=== PATIENT | male | born 1945 | race Caucasian/White ===

== ENCOUNTER 2017-08-22 11:50 | Emergency (ER) | payer MEDICARE, OTHER ==
[2017-08-22 12:06] VITALS: BP 141/79
[2017-08-22] MEDS ORDERED: HYDROMORPHONE HCL INJ/PF 2 MG/ML AMPULE IV ONE (12:15)
[2017-08-22] MEDS ORDERED: NORMAL SALINE 1000 ML 1,000 ML IV ONE (12:15)
--- NOTE | 2017-08-22 12:16 | ER Document Report ---
ED Medical Screen (RME) - General Chief Complaint: Flank Pain Stated Complaint: FLANK PAIN Time Seen by Provider: 08/22/17 12:14 Notes: Patient presents with left flank pain since yesterday. No urinary symptoms. He states he has had 2 previous kidney stones. He states he also has a known abdominal aortic aneurysm that is less than 5 cm. He has not been lightheaded or dizzy. TRAVEL OUTSIDE OF THE [place] IN LAST 30 DAYS: No - Related Data Allergies/Adverse Reactions: No Known Allergies Allergy (Unverified 08/22/17 11:52) Physical Exam - Vital signs Vitals: Temp Pulse Resp BP Pulse Ox 97.5 F 65 20 141/79 H 94 08/22/17 12:03 08/22/17 12:03 08/22/17 12:03 08/22/17 12:03 08/22/17 12:03 Course - Vital Signs Vital signs: Temp Pulse Resp BP Pulse Ox 97.5 F 65 20 141/79 H 94 08/22/17 12:03 08/22/17 12:03 08/22/17 12:03 08/22/17 12:03 08/22/17 12:03
[2017-08-22 13:01] LABS: ABSOLUTE BASOPHILS # (AUTO) 0.1 10^3/uL (0.0-0.2); ABSOLUTE EOSINOPHILS # (AUTO) 0.2 10^3/uL (0.0-0.6); ABSOLUTE LYMPHOCYTES (AUTO) 1.5 10^3/uL (0.5-4.7); ABSOLUTE MONOCYTES (AUTO) 0.8 10^3/uL (0.1-1.4); ABSOLUTE NEUT (AUTO) 5.5 10^3/uL (1.7-8.2); EOSINOPHILS % (AUTO) 2.7 % (0-6); HEMATOCRIT 44.4 % (37.9-51.0); HEMOGLOBIN 15.2 g/dL (13.5-17.0); LYMPHOCYTES % (AUTO) 18.5 % (13-45); MEAN CORPUSCULAR HEMOGLOBIN 32.2 pg (27.0-33.4); MEAN CORPUSCULAR HGB CONC 34.2 g/dL (32.0-36.0); MEAN CORPUSCULAR VOLUME 94 fl (80-97); MONOCYTES % (AUTO) 9.8 % (3-13); PLATELET COUNT 232 10^3/uL (150-450); RED BLOOD COUNT 4.72 10^6/uL (4.35-5.55); RED CELL DISTRIBUTION WIDTH 14.9 % (11.5-14.0); TOTAL CELLS COUNTED % (AUTO) 100 %; WHITE BLOOD COUNT 8.1 10^3/uL (4.0-10.5)
--- NOTE | 2017-08-22 13:17 | ER Document Report ---
ED General - General Chief Complaint: Flank Pain Stated Complaint: FLANK PAIN Time Seen by Provider: 08/22/17 12:14 TRAVEL OUTSIDE OF THE [place] IN LAST 30 DAYS: No - HPI Patient complains to provider of: Left flank pain Notes: Elderly man with history of kidney stones presents with 10/10 left flank pain with radiation to his left groin. He also endorses hematuria and mild nausea. States this feels 1 of his previous kidney stones. Denies fever chills or dysuria. Denies any abdominal pain chest pain or cough. - Related Data Allergies/Adverse Reactions: No Known Allergies Allergy (Unverified 08/22/17 11:52) Past Medical History - Social History Smoking Status: Current Some Day Smoker Chew tobacco use (# tins/day): No Frequency of alcohol use: None Drug Abuse: None Family History: Reviewed & Not Pertinent Patient has suicidal ideation: No Patient has homicidal ideation: No - Past Medical History Cardiac Medical History: Reports: Hx Hypercholesterolemia, Hx Hypertension Pulmonary Medical History: Reports: Hx COPD Renal/ Medical History: Denies: Hx Peritoneal Dialysis Past Surgical History: Reports: Hx Cardiac Surgery Review of Systems - Review of Systems Notes: REVIEW OF SYSTEMS: CONSTITUTIONAL: -fevers, -chills EENT: -eye pain, -difficulty swallowing, -nasal congestion CARDIOVASCULAR: -chest pain, -syncope. RESPIRATORY: -cough, -SOB GASTROINTESTINAL: -abdominal pain, -nausea, -vomiting, -diarrhea GENITOURINARY: -dysuria, -hematuria MUSCULOSKELETAL: Positive left flank pain SKIN: -rash or skin lesions. HEMATOLOGIC: -easy bruising or bleeding. LYMPHATIC: -swollen, enlarged glands. NEUROLOGICAL: -altered mental status or loss of consciousness, -headache, - neurologic symptoms PSYCHIATRIC: -anxiety, -depression. ALL OTHER SYSTEMS REVIEWED AND NEGATIVE. Physical Exam - Vital signs Vitals: Temp Pulse Resp BP Pulse Ox 97.5 F 65 20 141/79 H 94 08/22/17 12:03 08/22/17 12:03 08/22/17 12:03 08/22/17 12:03 08/22/17 12:03 - Notes Notes: PHYSICAL EXAMINATION: GENERAL: Well-appearing, well-nourished and in no acute distress. HEAD: Atraumatic, normocephalic. EYES: Pupils equal round and reactive to light, extraocular movements intact, sclera anicteric, conjunctiva are normal. ENT: nares patent, oropharynx clear without exudates. Moist mucous membranes. NECK: Normal range of motion, supple without lymphadenopathy LUNGS: Breath sounds clear to auscultation bilaterally and equal. No wheezes rales or rhonchi. HEART: Regular rate and rhythm without murmurs ABDOMEN: Soft, nontender, normoactive bowel sounds. No guarding, no rebound. No masses appreciated. EXTREMITIES: Normal range of motion, no pitting or edema. No cyanosis. NEUROLOGICAL: Cranial nerves grossly intact. Normal speech, normal gait. Normal sensory and motor exams. PSYCH: Normal mood, normal affect. SKIN: Warm, Dry, normal turgor, no rashes or lesions noted. Back: Positive CVA percussion Course - Re-evaluation Re-evalutation: 08/22/17 14:54 Extensive lab workup relatively unremarkable, patient has preserved kidney function. Advanced imaging study shows no obstruction just constipation. Patient found a urinary tract infection and nitrate positive. Patient will be initiated on cefdinir, to ensure intraparenchymal distribution of antibiotics as opposed to Macrobid. Patient be discharged home follow-up with his family doctor - Vital Signs Vital signs: Temp Pulse Resp BP Pulse Ox 97.5 F 65 20 141/79 H 94 08/22/17 12:03 08/22/17 12:03 08/22/17 12:03 08/22/17 12:03 08/22/17 12:03 - Laboratory Result Diagrams: 08/22/17 12:52 08/22/17 12:52 Laboratory results interpreted by me: 08/22/17 08/22/17 08/22/17 12:52 12:52 14:20 RDW 14.9 H AST 15 L ALT 17 L Urine Protein 30 H Urine Nitrite POSITIVE H Urine Urobilinogen 4.0 H Discharge - Discharge Clinical Impression: UTI (urinary tract infection) Qualifiers: Urinary tract infection type: acute pyelonephritis Qualified Code(s): N10 - Acute pyelonephritis Condition: Good Disposition: HOME, SELF-CARE Instructions: Urinary Tract Infection, Child ([facility]) Prescriptions: Cefdinir 300 mg PO BID #20 capsule Nitrofurantoin/Nitrofuran Mac [Macrobid 100 mg Capsule] 1 tab PO BID #20 capsule Oxycodone HCl [Oxycodone HCl 10 MG Tablet] 1 - 2 tab PO Q6H PRN #15 tablet PRN Reason: PAIN Referrals: HÉCTOR JENKINS MD [Primary Care Provider] - Follow up as needed
[2017-08-22 13:23] LABS: ALANINE AMINOTRANSFERASE 17 U/L (21-72); ALBUMIN 4.5 g/dL (3.5-5.0); ALKALINE PHOSPHATASE 107 U/L (38-126); ANION GAP 13 (5-19); ASPARTATE AMINO TRANSFERASE 15 U/L (17-59); BILIRUBIN,DIRECT 0.2 mg/dL (0.0-0.4); BILIRUBIN,TOTAL 0.6 mg/dL (0.2-1.3); BLOOD UREA NITROGEN 15 mg/dL (7-20); CALCIUM 10.1 mg/dL (8.4-10.2); CARBON DIOXIDE 25 mmol/L (22-30); CHLORIDE 102 mmol/L (98-107); GLUCOSE 98 mg/dL (75-110); POTASSIUM 4.9 mmol/L (3.6-5.0); SODIUM 140.3 mmol/L (137-145); TOTAL PROTEIN 7.5 g/dL (6.3-8.2)
--- NOTE | 2017-08-22 13:42 | RADIOLOGY REPORT (SQ) ---
EXAM DESCRIPTION: CT ABD/PELVIS NO ORAL OR IV COMPLETED DATE/TIME: 08/22/2017 1:16 pm REASON FOR STUDY: left flank pain/hx stones AAA COMPARISON: None. TECHNIQUE: CT scan of the abdomen and pelvis performed without intravenous or oral contrast. Images reviewed with lung, soft tissue, and bone windows. Reconstructed coronal and sagittal MPR images revi ewed. All images stored on PACS. All CT scanners at this facility use dose modulation, iterative reconstruction, and/or weight based d osing when appropriate to reduce radiation dose to as low as reasonably achievable (ALARA). [facility]: Dose Right [facility]: CareDose [facility]: Dose Right [facility]: Teradose 4D [facility]: Smart MPV RADIATION DOSE: CT Rad equipment meets quality standard of care and radiation dose reduction techniq ues were employed. CTDIvol: 4.9 mGy. DLP: 274 mGy-cm.mGy. LIMITATIONS: None. FINDINGS: LOWER CHEST: Mild COPD and mild scarring. No acute abnormalities. NON-CONTRASTED LIVER, SPLEEN, ADRENALS: Evaluation limited by lack of IV contrast. No identified sign ificant masses. PANCREAS: No masses. No peripancreatic inflammatory changes. GALLBLADDER: No identified stones by CT criteria. No inflammatory changes to suggest cholecystitis. RIGHT KIDNEY AND URETER: Small. No suspicious masses. Assessment limited by lack of IV contrast. N o significant calcifications. No hydronephrosis or hydroureter. LEFT KIDNEY AND URETER: No suspicious masses. Assessment limited by lack of IV contrast. Calcificat ion in the renal pelvis which appears vascular. No evidence of urinary tract stones. No hydronephr osis or hydroureter. AORTA AND RETROPERITONEUM: 4.3 cm infrarenal abdominal aortic aneurysm. 4.7 cm right common iliac an eurysm. No evidence of rupture. BOWEL AND PERITONEAL CAVITY: Large amount of fecal material in the transverse colon. Diverticulosis primarily involving the sigmoid colon. No diverticulitis. APPENDIX: Normal. PELVIS, BLADDER, AND ABDOMINAL WALL:Mild prostatic enlargement. Phleboliths and arterial calcificati ons in the pelvis. BONES: No acute findings. Old moderate compression fracture at L4 with old minimal compression fract ure at T12. OTHER: No other significant finding. IMPRESSION: 1. No evidence of urinary tract stone or obstruction. 2. Small right kidney. 3. 4.3 cm infrarenal abdominal aortic aneurysm with 4.7 cm right common iliac aneurysm. 4. Large amount of fecal material in transverse colon. 5. Sigmoid diverticulosis. No evidence of diverticulitis. COMMENT: Quality ID # [id number]: Final reports with documentation of one or more dose reduction techniques (e.g., Automated exposure control, adjustment of the mA and/or kV according to patient size, use of iterative reconstruction technique) TECHNICAL DOCUMENTATION: JOB ID: [id number] [employer]- All Rights Reserved Reading location - IP/workstation name: [email or web address]
[2017-08-22 14:47] LABS: APPEARANCE,URINE CLEAR; BILIRUBIN,URINE NEGATIVE (NEGATIVE); COLOR,URINE AMBER; GLUCOSE, URINE NEGATIVE (NEGATIVE); KETONES,URINE NEGATIVE (NEGATIVE); LEUKOCYTE ESTERASE,URINE NEGATIVE (NEGATIVE); NITRITE,URINE POSITIVE (NEGATIVE); PROTEIN,URINE 30 mg/dL (NEGATIVE); URINE SPECIFIC GRAVITY 1.016
== END 2017-08-22 15:46 | disposition home or self-care (01) ==
LOC: ER 11:50
DX: N10 Acute pyelonephritis (principal); K59.00 Constipation, unspecified; R10.30 Lower abdominal pain, unspecified; R31.9 Hematuria, unspecified; R11.0 Nausea; F17.200 Nicotine dependence, unspecified, uncomplicated
CPT/HCPCS: 99284; 96361; 96374; 36415; 87086; 85025; 80053; 81001; 74176; J1170; J7030

== ENCOUNTER 2017-08-27 14:40 | Emergency (ER) | payer MEDICARE, OTHER ==
[2017-08-27] MEDS ORDERED: NORMAL SALINE 1000 ML 1,000 ML IV ONE (16:43)
--- NOTE | 2017-08-27 16:44 | ER Document Report ---
ED Medical Screen (RME) - General Chief Complaint: Flank Pain Stated Complaint: FLANK PAIN Time Seen by Provider: 08/27/17 16:41 Notes: Patient seen here last week and diagnosed with urinary tract infection. He was discharged home on Ceftin ear and oxycodone. He states he is out of pain medication in his left flank pain is now severe. He also has nausea. TRAVEL OUTSIDE OF THE [place] IN LAST 30 DAYS: No - Related Data Allergies/Adverse Reactions: codeine Adverse Reaction (Verified 08/27/17 14:43) Past Medical History - Social History Chew tobacco use (# tins/day): No Frequency of alcohol use: None Drug Abuse: None - Past Medical History Cardiac Medical History: Reports: Hx Hypercholesterolemia, Hx Hypertension Pulmonary Medical History: Reports: Hx COPD Renal/ Medical History: Denies: Hx Peritoneal Dialysis Past Surgical History: Reports: Hx Cardiac Surgery Physical Exam - Vital signs Vitals: Temp Pulse Resp BP Pulse Ox 97.7 F 84 17 117/88 H 91 L 08/27/17 15:04 08/27/17 15:04 08/27/17 15:04 08/27/17 15:04 08/27/17 15:04 Course - Vital Signs Vital signs: Temp Pulse Resp BP Pulse Ox 97.7 F 84 17 117/88 H 91 L 08/27/17 15:04 08/27/17 15:04 08/27/17 15:04 08/27/17 15:04 08/27/17 15:04
[2017-08-27] MEDS ORDERED: KETOROLAC TROMETHAMINE INJ/PF 30 MG/1 ML SDV IV ONE (16:59)
[2017-08-27 17:23] LABS: ABSOLUTE BASOPHILS # (AUTO) 0.1 10^3/uL (0.0-0.2); ABSOLUTE LYMPHOCYTES (AUTO) 1.1 10^3/uL (0.5-4.7); ABSOLUTE MONOCYTES (AUTO) 0.7 10^3/uL (0.1-1.4); ABSOLUTE NEUT (AUTO) 7.5 10^3/uL (1.7-8.2); BASOPHILS % (AUTO) 1.2 % (0-2); EOSINOPHILS % (AUTO) 0.5 % (0-6); HEMOGLOBIN 14.8 g/dL (13.5-17.0); LYMPHOCYTES % (AUTO) 11.4 % (13-45); MEAN CORPUSCULAR HEMOGLOBIN 31.8 pg (27.0-33.4); MEAN CORPUSCULAR HGB CONC 33.6 g/dL (32.0-36.0); MEAN CORPUSCULAR VOLUME 95 fl (80-97); MONOCYTES % (AUTO) 7.9 % (3-13); PLATELET COUNT 274 10^3/uL (150-450); RED BLOOD COUNT 4.65 10^6/uL (4.35-5.55); RED CELL DISTRIBUTION WIDTH 13.8 % (11.5-14.0); TOTAL CELLS COUNTED % (AUTO) 100 %; WHITE BLOOD COUNT 9.5 10^3/uL (4.0-10.5)
[2017-08-27 17:43] LABS: ALANINE AMINOTRANSFERASE 25 U/L (21-72); ALBUMIN 4.3 g/dL (3.5-5.0); ALKALINE PHOSPHATASE 105 U/L (38-126); ANION GAP 12 (5-19); ASPARTATE AMINO TRANSFERASE 18 U/L (17-59); BILIRUBIN,DIRECT 0.4 mg/dL (0.0-0.4); BILIRUBIN,TOTAL 0.4 mg/dL (0.2-1.3); BLOOD UREA NITROGEN 22 mg/dL (7-20); CALCIUM 9.7 mg/dL (8.4-10.2); CARBON DIOXIDE 26 mmol/L (22-30); CHLORIDE 99 mmol/L (98-107); GLUCOSE 105 mg/dL (75-110); POTASSIUM 4.7 mmol/L (3.6-5.0); SODIUM 137.1 mmol/L (137-145); TOTAL PROTEIN 7.7 g/dL (6.3-8.2)
[2017-08-27 18:52] LABS: APPEARANCE,URINE SLIGHTLY-CLOUDY; BILIRUBIN,URINE NEGATIVE (NEGATIVE); COLOR,URINE YELLOW; GLUCOSE, URINE NEGATIVE (NEGATIVE); KETONES,URINE 20 mg/dL (NEGATIVE); LEUKOCYTE ESTERASE,URINE NEGATIVE (NEGATIVE); NITRITE,URINE NEGATIVE (NEGATIVE); PROTEIN,URINE 30 mg/dL (NEGATIVE); UROBILINOGEN,URINE NEGATIVE mg/dL (<2.0)
--- NOTE | 2017-08-27 19:20 | ER Document Report ---
ED General - General Mode of Arrival: Ambulatory Information source: Patient TRAVEL OUTSIDE OF THE [place] IN LAST 30 DAYS: No <ELINA VELASQUEZ - Last Filed: 08/27/17 19:49> <DELICIA VILCHIS - Last Filed: 08/27/17 22:18> - General Chief Complaint: Flank Pain Stated Complaint: FLANK PAIN Time Seen by Provider: 08/27/17 16:41 Notes: Patient is a 72 year old male presenting to the emergency department complaining of right flank pain and nausea worsening today. Patient states that he was seen in the emergency department 5 days ago for the same symptoms and was diagnosed with a kidney infection and prescribed antibiotics. Patient states that his pain as worsened since being diagnosed. Patient denies any fevers or vomiting. (ELINA VELASQUEZ) - Related Data Allergies/Adverse Reactions: codeine Adverse Reaction (Verified 08/27/17 14:43) Past Medical History - General Information source: Patient - Social History Smoking Status: Current Every Day Smoker Chew tobacco use (# tins/day): No Frequency of alcohol use: None Drug Abuse: None Family History: Reviewed & Not Pertinent Patient has suicidal ideation: No Patient has homicidal ideation: No - Past Medical History Cardiac Medical History: Reports: Hx Hypercholesterolemia, Hx Hypertension Pulmonary Medical History: Reports: Hx COPD Past Surgical History: Reports: Hx Cardiac Surgery - bypass <ELINA VELASQUEZ - Last Filed: 08/27/17 19:49> Review of Systems - Review of Systems Constitutional: No symptoms reported EENT: No symptoms reported Cardiovascular: No symptoms reported Respiratory: No symptoms reported Gastrointestinal: See HPI, Nausea Genitourinary: See HPI Male Genitourinary: No symptoms reported Musculoskeletal: No symptoms reported Skin: No symptoms reported Hematologic/Lymphatic: No symptoms reported Neurological/Psychological: No symptoms reported -: Yes All other systems reviewed and negative <ELINA VELASQUEZ - Last Filed: 08/27/17 19:49> Physical Exam <ELINA VELASQUEZ - Last Filed: 08/27/17 19:49> <DELICIA VILCHIS - Last Filed: 08/27/17 22:18> - Vital signs Vitals: Temp Pulse Resp BP Pulse Ox 97.7 F 84 17 117/88 H 91 L 08/27/17 15:04 08/27/17 15:04 08/27/17 15:04 08/27/17 15:04 08/27/17 15:04 - Notes Notes: GENERAL: Alert, interacts well. No acute distress. HEAD: Normocephalic, atraumatic. EYES: Pupils equal, round, and reactive to light. Extraocular movements intact. ENT: Oral mucosa moist, tongue midline. NECK: Full range of motion. Supple. Trachea midline. LUNGS: Clear to auscultation bilaterally, no wheezes, rales, or rhonchi. No respiratory distress. HEART: Regular rate and rhythm. No murmurs, gallops, or rubs. ABDOMEN: Soft, non-tender. Non-distended. Bowel sounds present in all 4 quadrants. EXTREMITIES: Moves all 4 extremities spontaneously. NEUROLOGICAL: Alert and oriented x3. Normal speech. PSYCH: Normal affect, normal mood. SKIN: Warm, dry, normal turgor. No rashes or lesions noted. BACK: No CVA tenderness to percussion. (ELINA VELASQUEZ) Course - Laboratory Result Diagrams: 08/27/17 17:06 08/27/17 17:06 <ELINA VELASQUEZ - Last Filed: 08/27/17 19:49> - Laboratory Result Diagrams: 08/27/17 17:06 08/27/17 17:06 - Diagnostic Test Radiology reviewed: Reports reviewed <DELICIA VILCHIS - Last Filed: 08/27/17 22:18> - Re-evaluation Re-evalutation: 08/27/17 19:46 Patient states he is currently feeling better. (ELINA VELASQUEZ) Patient is a 72-year-old male who comes in complaining of right-sided back pain. He does not have CVA tenderness. CT scan was done 5 days ago with no evidence for ureteral stone. Patient has a known aortic aneurysm. Patient did not know that he had an L4 fracture. Urine today looks well and the patient has no evidence for UTI. Urine culture did not grow anything. Likely the pain is from the patient's L4 compression fracture. States that he is feeling better after medication here. He was on Percocet at home but he ran out of it. He is asking for prescription for that. He also be given a prescription for Lidoderm patches. Daughter states that the patient has a nebulizer at home but not the medication for it and she thinks it helps him. We will give a prescription for DuoNeb. Appears well. Neurovascularly intact. Stable for discharge. Return if there are any worsening or concerning symptoms. Patient understands and agrees with plan. Stable for discharge. (DELICIA VILCHIS ) - Vital Signs Vital signs: Temp Pulse Resp BP Pulse Ox 97.5 F 68 16 164/77 H 92 08/27/17 20:14 08/27/17 20:14 08/27/17 20:14 08/27/17 20:14 08/27/17 20:14 - Laboratory Laboratory results interpreted by me: 08/27/17 08/27/17 08/27/17 17:06 17:06 18:30 Seg Neutrophils % 79.0 H Lymphocytes % 11.4 L BUN 22 H Urine Protein 30 H Urine Ketones 20 H Discharge <ELINA VELASQUEZ - Last Filed: 08/27/17 19:49> <DELICIA VILCIHS - Last Filed: 08/27/17 22:18> - Discharge Clinical Impression: Compression fracture of L4 lumbar vertebra Qualifiers: Encounter type: initial encounter Fracture type: closed Qualified Code(s): S32.040A - Wedge compression fracture of fourth lumbar vertebra, initial encounter for closed fracture Condition: Stable Disposition: HOME, SELF-CARE Instructions: Compression Fracture of the Spine ([facility]) Prescriptions: Docusate Sodium [Colace 100 mg Capsule] 100 mg PO BID #60 capsule Ipratropium/Albuterol Sulfate [Duoneb 3 ml Ampul] 3 ml NEB RTQ4HP PRN #30 vial.neb PRN Reason: Lidocaine [Lidoderm 5% (700 mg) Transdermal Patch] 1 patch TP DAILY #30 adh..patch Oxycodone HCl/Acetaminophen [Percocet 5-325 mg Tablet] 1 - 2 tab PO Q4H PRN #20 tablet PRN Reason: Polyethylene Glycol 3350 [Miralax Powder 17 gm/Packet] 1 cap PO DAILY #1 bottle Referrals: HÉCTOR JENKINS MD [Primary Care Provider] - Follow up in 3-5 days Scribe Attestation: 08/27/17 22:18 I personally performed the services described in the documentation, reviewed and edited the documentation which was dictated to the scribe in my presence, and it accurately records my words and actions. (DELICIA VILCHIS) Scribe Documentation - Scribe Written by Sadaf:: Sadaf Laboy, 08/27/2017 19:26 acting as scribe for :: Charli <ELINA VELASQUEZ - Last Filed: 08/27/17 19:49>
[2017-08-27 20:24] VITALS: BP 164/77
== END 2017-08-27 20:23 | disposition home or self-care (01) ==
LOC: ER 14:40
DX: S32.040A Wedge compression fracture of fourth lumbar vertebra, initial encounter for closed fracture (principal); R10.9 Unspecified abdominal pain; R11.0 Nausea; X58.XXXA Exposure to other specified factors, initial encounter; F17.200 Nicotine dependence, unspecified, uncomplicated; E78.00 Pure hypercholesterolemia, unspecified; I10 Essential (primary) hypertension; J44.9 Chronic obstructive pulmonary disease, unspecified; Z95.1 Presence of aortocoronary bypass graft
CPT/HCPCS: 99284; 96361; 96374; 36415; 85025; 80053; 81001; J1885; J7030

== ENCOUNTER 2017-11-01 14:30 | Emergency (ER) | payer MEDICARE, OTHER ==
[2017-11-01] MEDS ORDERED: ALBUTEROL SULFATE 0.083% NEB 2.5 MG/3 ML AMPUL NEB ONE (15:05)
[2017-11-01 15:27] LABS: ABSOLUTE BASOPHILS # (AUTO) 0.1 10^3/uL (0.0-0.2); ABSOLUTE EOSINOPHILS # (AUTO) 0.3 10^3/uL (0.0-0.6); ABSOLUTE LYMPHOCYTES (AUTO) 1.5 10^3/uL (0.5-4.7); ABSOLUTE MONOCYTES (AUTO) 0.6 10^3/uL (0.1-1.4); ABSOLUTE NEUT (AUTO) 4.4 10^3/uL (1.7-8.2); BASOPHILS % (AUTO) 1.2 % (0-2); EOSINOPHILS % (AUTO) 3.7 % (0-6); HEMATOCRIT 43.6 % (37.9-51.0); HEMOGLOBIN 14.5 g/dL (13.5-17.0); LYMPHOCYTES % (AUTO) 21.5 % (13-45); MEAN CORPUSCULAR HEMOGLOBIN 31.5 pg (27.0-33.4); MEAN CORPUSCULAR HGB CONC 33.1 g/dL (32.0-36.0); MEAN CORPUSCULAR VOLUME 95 fl (80-97); MONOCYTES % (AUTO) 8.7 % (3-13); PLATELET COUNT 230 10^3/uL (150-450); RED BLOOD COUNT 4.58 10^6/uL (4.35-5.55); RED CELL DISTRIBUTION WIDTH 14.8 % (11.5-14.0); SEGMENTED NEUTROPHILS % (AUTO) 64.9 % (42-78); TOTAL CELLS COUNTED % (AUTO) 100 %; WHITE BLOOD COUNT 6.8 10^3/uL (4.0-10.5)
[2017-11-01 15:35] LABS: ALANINE AMINOTRANSFERASE 24 U/L (21-72); ALBUMIN 4.4 g/dL (3.5-5.0); ALKALINE PHOSPHATASE 93 U/L (38-126); ANION GAP 13 (5-19); ASPARTATE AMINO TRANSFERASE 16 U/L (17-59); BILIRUBIN,DIRECT 0.4 mg/dL (0.0-0.4); BILIRUBIN,TOTAL 0.4 mg/dL (0.2-1.3); BLOOD UREA NITROGEN 14 mg/dL (7-20); CALCIUM 9.8 mg/dL (8.4-10.2); CARBON DIOXIDE 28 mmol/L (22-30); CHLORIDE 102 mmol/L (98-107); GLUCOSE 93 mg/dL (75-110); SODIUM 142.9 mmol/L (137-145); TOTAL PROTEIN 7.7 g/dL (6.3-8.2)
--- NOTE | 2017-11-01 15:39 | RADIOLOGY REPORT (SQ) ---
EXAM DESCRIPTION: CHEST 2 VIEWS COMPLETED DATE/TIME: 11/01/2017 3:25 pm REASON FOR STUDY: COPD, respiratory insufficiency COMPARISON: None. EXAM PARAMETERS: NUMBER OF VIEWS: two views TECHNIQUE: Digital Frontal and Lateral radiographic views of the chest acquired. RADIATION DOSE: NA LIMITATIONS: none FINDINGS: LUNGS AND PLEURA: The lungs are hyperexpanded. There is no infiltrate or effusion. No ma ss is seen. MEDIASTINUM AND HILAR STRUCTURES: No masses or contour abnormalities. HEART AND VASCULAR STRUCTURES: Heart normal size. No evidence for failure. BONES: No acute findings. HARDWARE: Sternotomy wires. Surgical clips. OTHER: No other significant finding. IMPRESSION: Chronic lung changes with no acute cardiopulmonary disease. TECHNICAL DOCUMENTATION: JOB ID: [id number] [employer]- All Rights Reserved Reading location - IP/workstation name: [email or web address]
[2017-11-01 15:46] LABS: CREATINE KINASE MB 0.47 ng/mL (<4.55)
[2017-11-01 15:47] LABS: TROPONIN I < 0.012 ng/mL
--- NOTE | 2017-11-01 15:55 | ER Document Report ---
ED General - General Chief Complaint: Near Syncope Stated Complaint: SYNCOPE Time Seen by Provider: 11/01/17 15:00 Notes: Patient has a history of COPD and his condition has been worsening for the past 5 days, since last Sunday. He went to see his primary care provider, Dr. Wheat this morning and because the patient is known to have a thoracic aneurysm, he referred the patient here for that study. Patient had the scan done and was being escorted out the front of the hospital towards his car when he became very short of breath and very weak feeling and was told by the nurse that he turned white as a sheet and nearly passed out. Patient says he felt very weak, but does not think he had a loss of consciousness. His blood pressures were recorded at 180/83 digit diastolic blood pressure. He was brought here for evaluation. He is awake and alert and answers questions appropriately. Patient says his lungs feel like they are full of congestion and fluid, but he cannot cough it out. Has not had any fever. Uses a home nebulizer of albuterol plus Spiriva inhaler. Stop smoking a couple of years ago. Denies any current fever. Patient has been diagnosed with a compression fracture of the back vertebra from coughing so hard recently. TRAVEL OUTSIDE OF THE [place] IN LAST 30 DAYS: No - Related Data Allergies/Adverse Reactions: codeine Adverse Reaction (Verified 08/27/17 14:43) Home Medications: metoporlol, colace, ASA, Past Medical History - Social History Smoking Status: Former Smoker Chew tobacco use (# tins/day): No Frequency of alcohol use: None Drug Abuse: None Family History: Reviewed & Not Pertinent Patient has suicidal ideation: No Patient has homicidal ideation: No - Past Medical History Cardiac Medical History: Reports: Hx Hypercholesterolemia, Hx Hypertension Pulmonary Medical History: Reports: Hx COPD Endocrine Medical History: Denies: Hx Diabetes Mellitus Type 1, Hx Diabetes Mellitus Type 2 Past Surgical History: Reports: Hx Cardiac Surgery - bypass, CABG Review of Systems - Review of Systems Notes: REVIEW OF SYSTEMS: CONSTITUTIONAL : Denies fever. EENT: Denies eye, ear, nose or mouth or throat pain or other symptoms. CARDIOVASCULAR: Denies chest pain. RESPIRATORY: See HPI. GASTROINTESTINAL: Denies abdominal pain or nausea, vomiting, or diarrhea. GENITOURINARY: Denies difficulty or painful urinating, urinary frequency, blood in urine. MUSCULOSKELETAL: Has back pain, but denies neck pain. Denies joint pain or swelling. SKIN: Denies rash or skin lesions. NEUROLOGICAL: Denies LOC or altered mental status. Denies headache. Denies sensory loss or motor deficits. ALL OTHER SYSTEMS REVIEWED AND NEGATIVE. Physical Exam - Vital signs Vitals: Pulse Ox 98 11/01/17 14:32 Interpretation: Hypertensive - Mild - Notes Notes: PHYSICAL EXAMINATION: GENERAL: Anxious. Slightly short of breath, breathing with "pursestring" lips HEAD: Atraumatic, normocephalic. EYES: Pupils equal round and reactive to light, extraocular movements intact. ENT: oropharynx clear without exudates. Moist mucous membranes. NECK: Normal range of motion, supple. LUNGS: With a few diffusely scattered expiratory wheezes. Very productive sounding cough, but patient does not get any phlegm out. HEART: Regular rate and rhythm without murmurs. ABDOMEN: Soft, nontender. No guarding or rebound. No masses. BACK: No tenderness throughout entire back. EXTREMITIES: Normal range of motion without pain. NEUROLOGICAL: Normal speech, normal gait. Normal sensory, motor, and reflex exams. Awake, alert, and oriented x3. Cranial nerves normal. PSYCH: Normal mood, normal affect. SKIN: Warm, dry, no rashes. Course - Re-evaluation Re-evalutation: 11/01/17 16:30 Patient is oxygen saturation on room air is 96% after 1 nebulizer. He says he does not think he needs anymore. His lab workup is essentially normal. I attempted to reach Dr. Wheat, but was unsuccessful. I am told by the jewel lathe operator at [facility] that they have texted him with a message to call me. I spoke with the patient who says that he was told by his doctor that he would contact him about an hour after the procedure was over. Since the patient is here in our emergency department at that time, he probably cannot reach the patient. I have advised the patient to contact Dr. Wheat in his office first thing tomorrow morning to determine if there is any medications that he wants him to take. Patient's CT of the chest shows one small area of about 4 cm in greatest diameter of intraluminal clot in the thoracic aorta. No focal aneurysms or thoracic aortic dissections were identified. Patient also has a compression fracture of T12 that was not present previously. 11/01/17 16:58 Dr. Wheat called me just before I discharged the patient. We went over the CT report. He advised me to discharge the patient and he will follow-up with him as needed. Patient has already dressed himself and is sitting at the bedside anxious to be discharged. 11/01/17 18:34 - Vital Signs Vital signs: Temp Pulse Resp BP Pulse Ox 98.2 F 63 18 188/90 H 99 11/01/17 17:14 11/01/17 17:14 11/01/17 17:14 11/01/17 17:14 11/01/17 17:14 - Laboratory Result Diagrams: 11/01/17 14:35 11/01/17 14:35 Laboratory results interpreted by me: 11/01/17 11/01/17 14:35 14:35 RDW 14.8 H AST 16 L - Diagnostic Test Radiology reviewed: Image reviewed, Reports reviewed - CT a of the chest shows an area of intraluminal clot of the thoracic aorta that is 4 cm maximal diameter. No other acute findings. Incidental note of compression fracture of T12. - EKG Interpretation by Me EKG shows normal: Sinus rhythm Rate: Normal Rhythm: NSR Additional EKG results interpreted by me: 11/01/17 16:34 EKG does not show any abnormalities. Discharge - Discharge Clinical Impression: COPD (chronic obstructive pulmonary disease), Near syncope Condition: Stable Disposition: HOME, SELF-CARE Additional Instructions: Chronic Obstructive Lung Disease You have chronic obstructive lung disease (COPD). The symptoms come from emphysema (damage to small airways, with trapping of air in large sacks in the lung) and chronic bronchitis (repeated infection and damage to larger airways). The cause is almost always cigarette smoking, although dust exposure, asthma, and infections contribute. You should avoid fumes, dust, and smoke (especially tobacco smoke). Your condition will flare from time to time. There is no cure, but the symptoms can be treated. Bronchodilators (asthma medicine) are often helpful. Antibiotics help when infection is present. When shortness of breath is severe, we may prescribe cortisone medication. If medicine doesn't help enough, we can arrange for you to have an oxygen tank at home. Notify your doctor at once if sputum becomes thick, foul, or bloody, if you develop a fever or chest pain, or if your shortness of breath worsens. UPPER RESPIRATORY ILLNESS: You have a viral infection of the respiratory passages -- a "cold." This common infection causes nasal congestion, drainage, and often sore throat and cough. It is highly contagious. The disease usually lasts about 10 to 14 days. There is no "cure" for the viral infection -- it must run its course. If there is a complication, such as bacterial infection in the nose, sinuses, middle ear, or bronchial tubes, antibiotics may be required. The antibiotics won't affect the virus. Drink plenty of fluids. A humidifier may help. An expectorant medication or decongestant may make you more comfortable. Use acetaminophen or ibuprofen for fever or aches. See the doctor if fever persists over two days, if there is any significant worsening of your symptoms, or if you simply fail to improve as expected. BRONCHOSPASM: You have tightness in the bronchial tubes, called bronchospasm. This often occurs with bronchial infections. Allergies, inhaled chemicals, and polluted or cold air can also provoke bronchospasm. It's more likely in patients with asthma in the family. Emergency treatment of bronchospasm may include adrenaline shots or bronchodilator aerosol. You may feel lightheaded and have a rapid pulse for an hour or two. Rest and get plenty of fluids. At home, we'll treat you with a bronchodilator inhaler. Antibiotics and corticosteroids may be required for some patients. Until you recover, avoid chemical fumes, dusts, pollens, and exercising in very cold or dry air. If you smoke, stop now!! If you develop a fever, increased wheezing, chest pain, or severe shortness of breath, you should contact the doctor immediately. INHALED BRONCHODILATORS: You have received a treatment of and/or prescription for an inhaled bronchodilator -- a medication which stimulates the airways in the lung to dilate. This improves the flow of air in asthma, bronchitis, and emphysema. These medicines have some similarity to adrenaline, and can cause similar side effects: shakiness, racing heart, and a sense of nervousness. These side effects decrease with time. Contact your doctor if these side effects are severe. Do not over-use the medicine. Too-frequent use of the inhaler may make it ineffective. Call your doctor if the inhaler is not controlling your symptoms at the prescribed doses. Use your nebulizer of albuterol at home every 4 hours during times when you are having difficulty with your breathing and wheezing and coughing a lot. FOLLOW-UP CARE: If you have been referred to a physician for follow-up care, call the physician s office for an appointment as you were instructed or within the next two days. If you experience worsening or a significant change in your symptoms, notify the physician immediately or return to the Emergency Department at any time for re-evaluation. Follow-up with your doctor tomorrow morning. Your CT scan today does not show any acute abnormality. There is a small area of clot in the thoracic aorta but no evidence of new focal aneurysms or aortic dissections. You do have a compression fracture of T12 which was not noted on a previous study.
[2017-11-01 17:15] VITALS: BP 188/90
--- NOTE | 2017-11-01 19:25 | EKG REPORT ---
SEVERITY:- OTHERWISE NORMAL ECG - SINUS RHYTHM LOW VOLTAGE IN FRONTAL LEADS : Confirmed by: Steven Marquez 01-Nov-2017 19:24:10
== END 2017-11-01 17:15 | disposition home or self-care (01) ==
LOC: ER 14:30
DX: J44.9 Chronic obstructive pulmonary disease, unspecified (principal); Z79.899 Other long term (current) drug therapy; R55 Syncope and collapse; I74.11 Embolism and thrombosis of thoracic aorta; I10 Essential (primary) hypertension; Z87.891 Personal history of nicotine dependence; Z95.1 Presence of aortocoronary bypass graft; F41.9 Anxiety disorder, unspecified; M54.9 Dorsalgia, unspecified
CPT/HCPCS: 93005; 94640; 99284; 36415; 82553; 85025; 80053; 84484; 71046; 93010; A9270

== ENCOUNTER → 2017-11-01 | Outpatient (CLI) | payer MEDICARE, OTHER ==
--- NOTE | 2017-11-01 13:09 | RADIOLOGY REPORT (SQ) ---
EXAM DESCRIPTION: CTA CHEST COMPLETED DATE/TIME: 11/01/2017 12:40 pm REASON FOR STUDY: R07.9 CHEST PAIN, UNSPECIFIED I71.2 THORACIC AORTIC ANEURYSM, WITHOUT RUPTU R07.9 CHEST PAIN, UNSPECIFIED I71.2 THORACIC AORTIC ANEURYSM, WITHOUT RUPTURE COMPARISON: Abdominal CT scan dated 08/22/2017 TECHNIQUE: CT scan of the chest performed using helical scanning technique with dynamic intravenous contrast injection. Images reviewed with lung, soft tissue and bone windows. Reconstructed coronal and sagittal MPR images reviewed. Additional 3 dimensional post-processing performed to develop Maximal Intensity Projection images (IA P). All images stored on PACS. All CT scanners at this facility use dose modulation, iterative reconstruction, and/or weight based d osing when appropriate to reduce radiation dose to as low as reasonably achievable (ALARA). [facility]: Dose Right [facility]: CareDose [facility]: Dose Right [facility]: Teradose 4D [facility]: ADVANCE Medical CONTRAST TYPE AND DOSE: contrast/concentration: Isovue 370.00 mg/ml; Total Contrast Delivered: 44.0 ml; Total Saline Delivered: 74.0 ml Contrast bolus optimized for the pulmonary arteries. Not diagnostic for the aorta. RENAL FUNCTION: 1.0 RADIATION DOSE: CT Rad equipment meets quality standard of care and radiation dose reduction techniq ues were employed. CTDIvol: 5.9 - 26.3 mGy. DLP: 285 mGy-cm. . LIMITATIONS: None. FINDINGS: LUNGS AND PLEURA: No masses, infiltrates, pneumothorax. No pleural effusions, calcificati ons. Linear pleural-based densities are identified in the lung bases most consistent with scarring. Emphysematous changes are identified consistent with obstructive lung disease. AORTA AND GREAT VESSELS: There is diffuse ectasia of the thoracic aorta with vascular calcifications and a small component of intraluminal clot the acid ending thoracic aorta measures 4 cm in greatest d iameter. No focal aneurysms or thoracic aortic dissections are identified. HEART: No pericardial effusion. No significant coronary artery calcifications. PULMONARY ARTERIES: No emboli visualized in the main pulmonary arteries or the segmental branches. HILAR AND MEDIASTINAL STRUCTURES: No identified masses or abnormal nodes. HARDWARE: Patient is status post median sternotomy. UPPER ABDOMEN: No significant findings. Limited exam. THYROID AND OTHER SOFT TISSUES: No masses. No adenopathy. BONES: There is compression of the superior endplate of the T12 vertebra with cortical irregularity c onsistent with fracture lines. This was not present on the previous CT scan and is consistent with a recent compression fracture. Clinical correlation is recommended. There are multiple other thoraci c vertebral compressions which are age indeterminate. 3D MIPS: Confirm above findings. OTHER: No other significant finding. IMPRESSION: There is diffuse ectasia of the thoracic aorta with vascular calcifications and a small component of intraluminal clot. No focal thoracic aortic aneurysm or dissection is seen. There is c ompression of the superior endplate of the T12 vertebra with cortical irregularity consistent with fr acture lines. This was not present on the previous CT scan is consistent with a recent compression f racture. Clinical correlation is recommended. There are multiple other thoracic vertebral compressi ons which are age indeterminate. No acute consolidations or pleural effusions. Emphysematous change s are identified consistent with obstructive lung disease. Other findings as noted above. COMMENT: Quality ID # [id number]: Final reports with documentation of one or more dose reduction techniques (e.g., Automated exposure control, adjustment of the mA and/or kV according to patient size, use of iterative reconstruction technique) TECHNICAL DOCUMENTATION: JOB ID: [id number] [employer]- All Rights Reserved Reading location - IP/workstation name: [email or web address]
== END ==
LOC: RAD 13:30
PROVIDERS: ATTEND Physician Assistant
DX: I71.2 Thoracic aortic aneurysm, without rupture (principal); R07.9 Chest pain, unspecified; J44.9 Chronic obstructive pulmonary disease, unspecified
CPT/HCPCS: 71275; 82565